=== PATIENT | female | born 1995 | race Caucasian/White ===

== ENCOUNTER 2016-10-22 15:59 | Inpatient (IN) | payer OTHER ==
[2016-10-26] MEDS ORDERED: METHYLERGONOVINE 0.2 MG/ML 1 ML AMP IM PRN (06:09)
[2016-10-26] MEDS ORDERED: OXYTOCIN 10 UNIT/ML 1 ML VIAL IM PRN (06:09)
[2016-10-26] MEDS ORDERED: LIDOCAINE 1% (PF) 10 MG/ML (30 ML SDV) SQ PRN (06:09)
[2016-10-26] MEDS ORDERED: TERBUTALINE 1 MG/ML VIAL SQ PRN (06:09)
[2016-10-26] MEDS ORDERED: CARBOPROST TROMETHAMINE 250 MCG/ML 1 ML AMP IM PRN (06:09)
[2016-10-26] MEDS ORDERED: OXYTOCIN 20 UNITS/1000 ML NS 1,000 ML IV SCH (06:15)
[2016-10-26] MEDS: LACTATED RINGERS 1,000 ML IV SCH ×3 (06:20→12:11)
[2016-10-26 06:50] LABS: Basophils % (A) 0 %; CH 32.5; CHCM 36.6; Eosinophils # (A) 0.1 k/uL (0-0.7); Eosinophils % (A) 1 %; HCT 33.1 % (34.0-46.0); HDW 3.05; Luc # (Auto) 0.15; Luc % (Auto) 1; Lymphocytes # (A) 1.5 k/uL (1.0-4.8); Lymphocytes % (A) 13 %; MCH 32.4 pg (25.0-35.0); MCHC 36.3 g/dL (31.0-37.0); MCV 89.3 fL (80.0-100.0); Mean Platelet Volume 8.1; Monocytes # (A) 0.6 k/uL (0-1.0); Monocytes % (A) 5 %; Neutrophils # (A) 9.3 k/uL (1.3-7.7); Neutrophils % (A) 79 %; RDW 13.3 % (11.5-15.5); WBC 11.8 k/uL (3.8-10.6); WBC (Perox) 11.69
--- NOTE | 2016-10-26 07:28 | P.HPOB ---
History of Present Illness Chief Complaint: t This is a 21-year-old white female 1 para 0 EDC 10/22/2016 at 40-4/7 weeks' gestation. Patient presents for induction with favorable cervix, postdates. has been unremarkable, blood type is O+, rubella status nonimmune, group B strep cultures negative. Please see below. Fetus has been active throughout the . She admits to irregular mild uterine contractions this morning. Past medical history is significant for anxiety, attention deficit disorder, and polycystic ovarian syndrome. Past surgical history abdominoplasty 2015, breast reduction 2015, tubes in the ears as a child. Current medications vitamins daily. ALLERGIES none known. Family history significant for breast and colon cancer, hypertension and kidney failure, heart disease and emphysema. Social history patient is single, boyfriend is involved, she denies alcohol drug use or tobacco use. history is significant for blood type O positive, rubella status nonimmune. Pap smear, urine culture, gonorrhea and chlamydia cultures, VDRL, HIV testing, hepatitis B surface antigen all negative. One-hour Glucola 123. On exam this is a pleasant young female, she is 5 foot 3 inches, 198 pounds, admission blood pressure 125/73. Vital signs are stable and she is afebrile. The general physical exam is within normal limits. The extremities reveal no edema. heart rate is consistent with reactive NST with a baseline of 140. Artificial amniorrhexis reveals light meconium-stained fluid. Cervix is 3 cm dilated, 60-70% effaced, -2 station, vertex presentation. Impression: 40-4/7 weeks intrauterine , here for elective induction of labor, meconium-stained fluid, rubella nonimmune. Plan: Close maternal and surveillance. Oxytocin per hospital protocol. Anticipate normal spontaneous vaginal delivery. Medications and Allergies Allergies Allergy/AdvReac Type Severity Reaction Status Date / Time No Known Allergies Allergy Verified 10/26/16 06:09 Exam - Vital Signs Vital signs: Intake and Output 10/25/16 10/26/16 10/26/16 22:59 06:59 14:59 Other: Weight 89.811 kg Results Result Diagrams: 10/26/16 06:20 Abnormal Lab Results - Last 24 Hours (Table) 10/26/16 Range/Units 06:20 WBC 11.8 H (3.8-10.6) k/uL RBC 3.70 L (3.80-5.40) m/uL Hct 33.1 L (34.0-46.0) % Neutrophils # 9.3 H (1.3-7.7) k/uL
[2016-10-26 07:42] VITALS: BMI 35.0
[2016-10-26] MEDS ORDERED: fentaNYL (PF) 50 MCG/ML 5 ML AMP ONE (10:01)
[2016-10-26] MEDS ORDERED: SODIUM CHLORIDE 0.9% 100 ML BAG ONE (10:01)
[2016-10-26] MEDS ORDERED: BUPIVACAINE (PF) 0.25% 30 ML VIAL ONE (10:01)
[2016-10-26] MEDS ORDERED: BUPIVACAINE (PF) 0.25% 25 ML, fentaNYL (PF) 200 MCG in SODIUM CHLORIDE 0.9% 71 ML EPIDURAL ONE (11:28)
[2016-10-26] MEDS ORDERED: MEASLES-MUMPS-RUBELLA VACC/PF 12,500 UNIT/0.5 ML VIAL SQ ONE (16:07)
[2016-10-26] MEDS ORDERED: SIMETHICONE 80 MG CHEWABLE PO PRN (16:07)
[2016-10-26] MEDS ORDERED: diphenhydrAMINE 50 MG/ML 1 ML VIAL IVP PRN ×2 (16:07)
[2016-10-26] MEDS ORDERED: Acetaminophen-Codeine 300-30mg TAB PO PRN (16:07)
[2016-10-26] MEDS ORDERED: ZOLPIDEM 5 MG TAB PO PRN (16:07)
[2016-10-26] MEDS ORDERED: ACETAMINOPHEN TAB 325 MG TAB PO PRN (16:07)
[2016-10-26] MEDS ORDERED: diphenhydrAMINE 50 MG CAP PO PRN (16:07)
[2016-10-26] MEDS ORDERED: BENZOCAINE/MENTHOL SPRAY 1 GM/SPRAY AEROSOL TOPICAL PRN (16:07)
[2016-10-26] MEDS ORDERED: WITCH HAZEL 1 EACH MED..PAD TOPICAL PRN (16:07)
[2016-10-26] MEDS ORDERED: LANOLIN CREAM 5 GM TUBE TOPICAL PRN (16:07)
[2016-10-26] MEDS ORDERED: diphenhydrAMINE 25 MG CAP PO PRN (16:07)
[2016-10-26] MEDS ORDERED: HYDROCORTISONE 2.5% RECTAL CREAM 30 GM TUBE RECTAL PRN (16:07)
--- NOTE | 2016-10-26 16:07 | P.PROBDLV ---
Vaginal Delivery Note - . Vaginal Delivery Note: This is a 21-year-old white female 1 para 0 EDC 10/22/2016 at 40-4/7 weeks' gestation. Patient presented for induction with favorable cervix for postdates . has been unremarkable, rubella status nonimmune , blood type O+, group B strep cultures negative. Please see my dictated history and physical for details. Artificial amniorrhexis revealed light meconium-stained fluid. Oxytocin was started and titrated per hospital protocol. Epidural was placed per her request. Patient became completely dilated at 1541 hours and began the second stage of labor at that time. There were several episodes of decelerations noted in the first stage of labor, all corrected with position change. The perineal body was prepped and draped in usual sterile fashion. With excellent maternal expulsive efforts the infant's head delivered occiput anterior. He restituted accordingly. There was a tight nuchal cord that was easily reduced. The left or anterior shoulder was delivered from underneath the pubic symphysis at which time the oropharynx, nasopharynx, and external nares were bulb suctioned on the perineal body. Patient was officially delivered a liveborn male infant at 1550 hrs. Umbilical cord was doubly clamped and ligated, he was handed to waiting nurses for evaluation where scores of 37 and 9 at one and 5 and 10 minutes respectively were given. A section of cord was held aside but not deemed necessary to sent to lab. The placenta delivered spontaneously, it was inspected and noted to be intact with trivascular cord at 1555 hrs. At this time the uterus was massaged and oxytocin bolus was given. Inspection of the cervix, vagina, perineum, periurethral, and perirectal areas revealed a small first-degree perineal laceration at 5:00. This was repaired in the usual fashion using a single [id number] of 3-0 Vicryl. All sponge needle and enhancement counts are correct at the end of the procedure. Estimated blood loss 300 mL's. Patient and her family are allowed to begin the bonding experience in the LDR. They are requesting circumcision further son.
[2016-10-26] MEDS ORDERED: DIPH,PERTUS(ACELL)TETVAC-LF 0.5 ML VIAL IM ONE (16:08)
[2016-10-26] MEDS: SENNOSIDES-DOCUSATE SODIUM 1 EACH TAB PO SCH (20:42)
[2016-10-26] MEDS: IBUPROFEN 600 MG TAB PO PRN (22:50)
--- NOTE | 2016-10-27 07:43 | P.PN ---
Subjective Principal diagnosis: day #1 Slept well. Feeling great. Moderate to minimal lochia rubra. No complaints. Objective - Vital Signs Vital signs: Vital Signs Temp 98.1 F 10/27/16 00:00 Pulse 102 H 10/27/16 00:00 Resp 15 10/27/16 00:00 BP 146/79 10/27/16 00:00 Pulse Ox 97 10/26/16 17:58 Intake & Output 10/26/16 10/27/16 10/27/16 18:59 06:59 18:59 Intake Total 1000.0 Balance 1000.0 Weight 89.811 kg Intake: Intake, IV Titration 1000.0 Amount Oxytocin 20 Units/1000 ml 1000.0 Ns 1,000 ml @ 1 MILLIUNIT/MIN 3 mls/hr IV .Q24H TEZ Rx#:[id number] Other: # Voids 1 - Constitutional General appearance: Present: average body habitus, cooperative - EENT Eyes: Present: PERRLA ENT: Present: hearing grossly normal - Neck Neck: Present: normal ROM Thyroid: bilateral: normal size - Respiratory Respiratory: bilateral: CTA - Cardiovascular Rhythm: regular - Gastrointestinal Gastrointestinal Comment(s): Fundus firm, midline, symmetric, 18 week size. Nontender General gastrointestinal: Present: normal bowel sounds - Integumentary Integumentary: Present: normal - Neurologic Neurologic: Present: CNII-XII intact - Musculoskeletal Musculoskeletal: Present: gait normal - Psychiatric Psychiatric: Present: A&O x's 3, appropriate affect, intact judgment & insight - Labs CBC & Chem 7: 10/26/16 06:20 Assessment and Plan Plan: Continue care. Patient is a candidate for discharge home, however infant is in the nursery for extended antibiotics. Likely circumcision and discharge home tomorrow. Time with Patient: Less than 30
[2016-10-27] MEDS: IBUPROFEN 600 MG TAB PO PRN ×3 (08:05→23:28)
[2016-10-27] MEDS: SENNOSIDES-DOCUSATE SODIUM 1 EACH TAB PO SCH ×2 (10:46→22:44)
--- NOTE | 2016-10-28 07:23 | P.DS ---
Providers Date of admission: 10/26/16 06:03 Expected date of discharge: 10/28/16 Attending physician: Valeria Dillard Primary care physician: Stated None Hospital Course: This is a 21-year-old white female 1 para 0 EDC 10/22/2016 at 40-4/7 weeks' gestation. Patient presented for induction for postdates , group B strep cultures negative, rubella status nonimmune. Please see my dictated history and physical for details. Artificial amniorrhexis revealed thin meconium-stained fluid. Oxytocin was started and titrated per hospital protocol. Patient went on to deliver a liveborn male infant with scores of 37 and 9 at one and 5 and 10 minutes respectively. There was a tight nuchal cord 1. Infant weighed 3895 g or 8 lbs. 9 oz. There was an estimated blood loss recorded of 300 mL, and a small first-degree perineal laceration easily repaired. Please see my dictated delivery note for details. This morning the patient is doing well. She is voiding, ambulating and passing flatus without difficulty. Vital signs are stable and she is afebrile. Fundus is firm and in the midline, symmetric and 18 week size extremities are negative for edema. Breasts are not engorged. Cass is in the nursery for antibiotic administration under pediatricians care. Circumcision has not yet been performed, but will be prior to discharge of the . Patient is being discharged home in very good condition. She will follow-up with me in the office in 6 weeks. I have reminded her no intercourse, tampons or douching. She will use [id number] ibuprofen products, 200 mg pills, 3 every 6 hours as needed. I've asked her to call me with any fevers shakes or chills, foul smelling or copious lochia, with any issues breast-feeding, with any pain not alleviated by [id number] products, or indeed with any concerns. We have briefly reviewed contraceptive options and we will discuss this further in the office. Patient Condition at Discharge: Good Plan - Discharge Summary Follow up Appointment(s)/Referral(s): Valeria Dillard MD [STAFF PHYSICIAN] - 6 Weeks Discharge Disposition: HOME SELF-CARE
[2016-10-28] MEDS: IBUPROFEN 600 MG TAB PO PRN (08:02)
[2016-10-28] MEDS: SENNOSIDES-DOCUSATE SODIUM 1 EACH TAB PO SCH (08:02)
[2016-10-28 08:05] VITALS: BP 128/84; PULSE 80; RESP 16; TEMP 97.9
== END 2016-10-28 12:54 | disposition home or self-care (01) | DRG 775 ==
LOC: 4FBP 10-26 06:03
PROVIDERS: ADMIT Obstetrics & Gynecology; ATTEND Obstetrics & Gynecology
PROC: 0HQ9XZZ Repair Perineum Skin, External Approach (ICD-10-PCS; principal; 2016-10-26)
PROC: 3E0R3CZ (ICD-10-PCS; principal; 2016-10-26)
PROC: 00HU33Z Insertion of Infusion Device into Spinal Canal, Percutaneous Approach (ICD-10-PCS; principal; 2016-10-26)
PROC: 10907ZC Drainage of Amniotic Fluid, Therapeutic from Products of Conception, Via Natural or Artificial Opening (ICD-10-PCS; principal; 2016-10-26)
PROC: 3E033VJ Introduction of Other Hormone into Peripheral Vein, Percutaneous Approach (ICD-10-PCS; principal; 2016-10-26)
PROC: 10E0XZZ Delivery of Products of Conception, External Approach (ICD-10-PCS; principal; 2016-10-26)
DX: O48.0 Post-term pregnancy (principal); O77.0 Labor and delivery complicated by meconium in amniotic fluid; Z37.0 Single live birth; O69.1XX0 Labor and delivery complicated by cord around neck, with compression, not applicable or unspecified; O70.0 First degree perineal laceration during delivery; Z3A.40 40 weeks gestation of pregnancy; O76 Abnormality in fetal heart rate and rhythm complicating labor and delivery
CPT/HCPCS: 85025; 88307; 88312; 90707; 90715

== ENCOUNTER 2016-11-01 17:50 | Inpatient (IN) | payer OTHER ==
[2016-11-01] MEDS ORDERED: SODIUM CHLORIDE 0.9% 1,000 ML IV STA (20:05)
--- NOTE | 2016-11-01 20:38 | ED ---
General Adult HPI - General Chief complaint: Headache Stated complaint: dr paula/ZAYNAB Time Seen by Provider: 11/01/16 20:00 Source: patient, RN notes reviewed Mode of arrival: wheelchair Limitations: no limitations - History of Present Illness Initial comments: Patient is a 21-year-old female who is status post vaginal delivery times only, who presents emergency room today with a chief complaint of having a headache earlier today with an elevated blood pressure. She states that she did take Excedrin prior to arrival. States her headache is improved. Currently rates a /. States is no history of hypertension. She denies any other complaints or symptoms at this time. Patient denies any recent fever, chills, shortness of breath, chest pain, back pain, abdominal pain, nausea or vomiting, numbness or tingling, dysuria or hematuria, constipation or diarrhea, headaches or visual changes, or any other complaints. - Related Data Home Medications Medication Instructions Recorded Confirmed Aspirin/Acetaminophen/Caffeine 2 tab PO DAILY PRN 11/01/16 11/01/16 [Excedrin Migraine Caplet] Ibuprofen [Motrin] 600 mg PO Q6HR PRN 11/01/16 11/01/16 Pnv,Calcium 72/Iron/Folic Acid 1 tab PO HS 11/01/16 11/01/16 [ Plus Tablet] Allergies Allergy/AdvReac Type Severity Reaction Status Date / Time No Known Allergies Allergy Verified 11/01/16 19:45 Review of Systems ROS Statement: Those systems with pertinent positive or pertinent negative responses have been documented in the HPI. ROS Other: All systems not noted in ROS Statement are negative. Past Medical History Past Medical History: No Reported History History of Any Multi-Drug Resistant Organisms: None Reported Additional Past Surgical History / Comment(s): breast reduction, tummy tuck, tubes in ears Past Anesthesia/Blood Transfusion Reactions: Postoperative Nausea & Vomiting ( PONV) Past Psychological History: Anxiety Smoking Status: Never smoker Past Alcohol Use History: None Reported Past Drug Use History: None Reported - Past Family History Father Additional Family Medical History / Comment(s): bicuspid aortic aneurism. General Exam - General Exam Comments Initial Comments: General: The patient is awake and alert, in no distress, and does not appear acutely ill. Eye: Pupils are equal, round and reactive to light, extra-ocular movements are intact. No nystagmus. There is normal conjunctiva bilaterally. No signs of icterus. Ears, nose, mouth and throat: There are moist mucous membranes and no oral lesions. Neck: The neck is supple, there is no tenderness or JVD. Cardiovascular: There is a regular rate and rhythm. No murmur, rub or gallop is appreciated. Respiratory: Lungs are clear to auscultation, respirations are non-labored, breath sounds are equal. No wheezes, stridor, rales, or rhonchi. Gastrointestinal: Soft, non-distended, non-tender abdomen without masses or organomegaly noted. There is no rebound or guarding present. No CVA tenderness. Bowel sounds are unremarkable. Musculoskeletal: Normal ROM, no tenderness. Strength 5/5. Sensation intact. Pulses equal bilaterally 2+. Neurological: A&O x 3. CN II-XII intact, There are no obvious motor or sensory deficits. Coordination appears grossly intact. Speech is normal. Skin: Skin is warm and dry and no rashes or lesions are noted. Psychiatric: Cooperative, appropriate mood & affect, normal judgment. Limitations: no limitations Course Vital Signs 11/01/16 11/01/16 11/01/16 17:58 20:00 20:51 Temperature 98.2 F Pulse Rate 67 82 63 Respiratory 16 20 20 Rate Blood Pressure 180/96 205/99 197/90 O2 Sat by Pulse 96 95 Oximetry 11/01/16 11/01/16 11/01/16 21:47 22:26 23:10 Temperature Pulse Rate 60 60 84 Respiratory 16 16 16 Rate Blood Pressure 192/94 168/90 171/99 O2 Sat by Pulse 96 98 97 Oximetry 11/01/16 23:34 Temperature Pulse Rate 78 Respiratory 16 Rate Blood Pressure 161/92 O2 Sat by Pulse 96 Oximetry Medical Decision Making - Medical Decision Making Patient's labs been reviewed. Patient's blood pressure remains elevated here the emergency room had 2 doses of hydralazine. Patient's labs been reviewed 2+ protein in urine. Evidence for urinary tract infection. Started on Rocephin here in emergency room. Case discussed with admitting physician Dr. Sam who will admit the patient. - Lab Data Result diagrams: 11/01/16 20:20 11/01/16 20:20 Lab Results 09/26/17 09/26/17 09/26/17 Range/Units 20:20 20:20 21:05 WBC 9.7 (3.8-10.6) k/uL RBC 3.48 L (3.80-5.40) m/uL Hgb 11.3 L (11.4-16.0) gm/dL Hct 32.4 L (34.0-46.0) % MCV 93.1 (80.0-100.0) fL MCH 32.6 (25.0-35.0) pg MCHC 35.1 (31.0-37.0) g/dL RDW 12.7 (11.5-15.5) % Plt Count 286 (150-450) k/uL Neutrophils % 77 % Lymphocytes % 14 % Monocytes % 5 % Eosinophils % 2 % Basophils % 1 % Neutrophils # 7.5 (1.3-7.7) k/uL Lymphocytes # 1.3 (1.0-4.8) k/uL Monocytes # 0.5 (0-1.0) k/uL Eosinophils # 0.2 (0-0.7) k/uL Basophils # 0.1 (0-0.2) k/uL Sodium 141 (137-145) mmol/L Potassium 3.6 (3.5-5.1) mmol/L Chloride 107 (98-107) mmol/L Carbon Dioxide 24 (22-30) mmol/L Anion Gap 10 mmol/L BUN 8 (7-17) mg/dL Creatinine 0.68 (0.52-1.04) mg/dL Est GFR (MDRD) Af Amer >60 (>60 ml/min/1.73 sqM) Est GFR (MDRD) Non-Af >60 (>60 ml/min/1.73 sqM) Glucose 92 (74-99) mg/dL Calcium 9.4 (8.4-10.2) mg/dL Total Bilirubin 0.3 (0.2-1.3) mg/dL AST 13 L (14-36) U/L ALT 29 (9-52) U/L Alkaline Phosphatase 123 (38-126) U/L Total Protein 6.3 (6.3-8.2) g/dL Albumin 3.6 (3.5-5.0) g/dL Urine Color Yellow Urine Appearance Cloudy H (Clear) Urine pH 7.5 (5.0-8.0) Ur Specific [place]man 1.006 (1.001-1.035) Urine Protein 2+ H (Negative) Urine Glucose (UA) Negative (Negative) Urine Ketones Negative (Negative) Urine Blood Large H (Negative) Urine Nitrite Negative (Negative) Urine Bilirubin Negative (Negative) Urine Urobilinogen <2.0 (<2.0) mg/dL Ur Leukocyte Esterase Large H (Negative) Urine RBC 25 H (0-5) /hpf Urine WBC >182 H (0-5) /hpf Urine WBC Clumps Many H (None) /hpf Ur Squamous Epith Cells 3 (0-4) /hpf Disposition Clinical Impression: Preeclampsia Disposition: ADMITTED IP TO THIS HOSP Condition: Stable Referrals: Oleksandr Roth MD [Primary Care Provider] - 1-2 days Time of Disposition: 23:39
[2016-11-01 20:40] LABS: Basophils # (A) 0.1 k/uL (0-0.2); Basophils % (A) 1 %; CH 32.5; CHCM 35.1; Eosinophils # (A) 0.2 k/uL (0-0.7); Eosinophils % (A) 2 %; HCT 32.4 % (34.0-46.0); HGB 11.3 gm/dL (11.4-16.0); Luc # (Auto) 0.13; Luc % (Auto) 1; Lymphocytes # (A) 1.3 k/uL (1.0-4.8); Lymphocytes % (A) 14 %; MCH 32.6 pg (25.0-35.0); MCHC 35.1 g/dL (31.0-37.0); MCV 93.1 fL (80.0-100.0); Mean Platelet Volume 7.3; Monocytes # (A) 0.5 k/uL (0-1.0); Monocytes % (A) 5 %; Neutrophils # (A) 7.5 k/uL (1.3-7.7); Neutrophils % (A) 77 %; RBC 3.48 m/uL (3.80-5.40); RDW 12.7 % (11.5-15.5); WBC 9.7 k/uL (3.8-10.6); WBC (Perox) 9.78
[2016-11-01 21:02] LABS: ALT 29 U/L (9-52); AST 13 U/L (14-36); Alkaline Phosphatase 123 U/L (38-126); Anion Gap 10 mmol/L; Blood Urea Nitrogen 8 mg/dL (7-17); Calcium 9.4 mg/dL (8.4-10.2); Carbon Dioxide 24 mmol/L (22-30); Chloride 107 mmol/L (98-107); Glucose 92 mg/dL (74-99); Non-African American GFR(MDRD) >60 (>60 ml/min/1.73 sqM); Potassium 3.6 mmol/L (3.5-5.1); Sodium 141 mmol/L (137-145); Total Bilirubin 0.3 mg/dL (0.2-1.3); Total Protein 6.3 g/dL (6.3-8.2)
[2016-11-01 21:29] LABS: Appearance,Urine Cloudy (Clear); Bilirubin,Urine Negative (Negative); Glucose,Urine (UA) Negative (Negative); Ketones,Urine Negative (Negative); Leukocyte Esterase,Urine Large (Negative); Nitrite,Urine Negative (Negative); PH, Urine 7.5 (5.0-8.0); Particle Count 12812; Protein,Urine 2+ (Negative); RBC,Urine 25 /hpf (0-5); Specific Gravity,Urine 1.006 (1.001-1.035); Squamous Epithelial Cell,Urine 3 /hpf (0-4); UA Billing (MACRO vs. MICRO) MICRO; Urobilinogen,Urine <2.0 mg/dL (<2.0); WBC,Urine >182 /hpf (0-5)
[2016-11-01] MEDS ORDERED: hydrALAZINE HCL 20 MG/ML 1 ML VIAL IVP STA ×2 (21:51→22:35)
[2016-11-02] MEDS ORDERED: LABETALOL 5 MG/ML VIAL MDV IVP PRN ×2 (00:17)
[2016-11-02] MEDS ORDERED: hydrALAZINE HCL 20 MG/ML 1 ML VIAL IVP PRN ×2 (00:17)
[2016-11-02] MEDS ORDERED: MAGNESIUM SULFATE MG 6,000 MG in SODIUM CHLORIDE 0.9% 50 ML IVPB ONE (00:20)
[2016-11-02] MEDS ORDERED: CALCIUM GLUCONATE 100 MG/ML 10 ML VIAL IV PRN (01:00)
[2016-11-02] MEDS: LACTATED RINGERS 1,000 ML IV SCH (01:15)
[2016-11-02] MEDS: MAGNESIUM SULFATE-WATER PMX 20 GM in WATER FOR INJECTION 1 500ML.BAG IV SCH ×4 (02:03→22:34)
[2016-11-02 03:32] VITALS: BMI 33.3
[2016-11-02] MEDS ORDERED: ACETAMINOPHEN IV (For NPO) 1,000 MG in EMPTY BAG 1 BAG IVPB ONE (07:58)
--- NOTE | 2016-11-02 08:23 | P.HPOB ---
History of Present Illness H&P Date: 11/02/16 Chief Complaint: Severe headache, blood pressure 200/110 at [facility] This is a 21-year-old white female 1 para 1 status post normal spontaneous vaginal delivery at 40-4/7 weeks' here, 6 days ago. Patient presented to the emergency room with a severe headache, blood pressure checked at an outside drugstore was 200/110. Patient was found to be hypertensive, blood pressures 190-200 over 90s to 110s. There was 2+ proteinuria noted. Liver enzymes normal. Diagnosis of severe preeclampsia was made and patient was admitted to labor and delivery. Past medical history is significant for anxiety and attention deficit disorder, as well as polycystic ovaries. Past surgical history abdominoplasty 2005, bilateral breast reduction 2005, tympanic tubes in the ears as a child. Social history patient is single, she has good family support, she has never been a smoker, she denies alcohol or drug use. Family history significant for breast and ovarian cancer, hypertension, heart disease, kidney failure. Obstetric history: Normal spontaneous vaginal delivery at 40-4/7 weeks of liveborn male , 3895 kg. There was no history of -induced hypertension or elevated blood pressures in the period. On exam she is 5'3", BMI 33, BP now 130's/80's. HEENT exam WNL. Chest clear A and P. Cardiac exam RRR, no murmurs. Breast engorged consistant with post status. Fundus firm, 16-18 wk size, nontender and midline, symmetric. Extremities with no edema, 3+ relfexes, no clonus. Minimal lochia rubra, no perineal edema. Lab include 2+ proteinuria, all else WNL. Impression: severe preeclampsia presenting at 6days post . BP greatly improved on MgSO4. Plan: Mg SO4 6g loading dose given, 2g per hour and continue for 24 hours,m then taper. May shower with assistance. Advance to regular diet. Continue close BP surveillance and consdier antihypertensive agent pending progress. Review of Systems See distation under HPI Past Medical History Past Medical History: No Reported History Additional Past Medical History / Comment(s): anxiety, ADD, PCO History of Any Multi-Drug Resistant Organisms: None Reported Additional Past Surgical History / Comment(s): breast reduction, tummy tuck, tubes in ears Past Anesthesia/Blood Transfusion Reactions: Postoperative Nausea & Vomiting ( PONV) Past Psychological History: Anxiety Smoking Status: Never smoker Past Alcohol Use History: None Reported Past Drug Use History: None Reported - Past Family History Father Additional Family Medical History / Comment(s): bicuspid aortic aneurism. Medications and Allergies Home Medications and Allergies Comment(s): vitamins Home Medications Medication Instructions Recorded Confirmed Type Aspirin/Acetaminophen/Caffeine 2 tab PO DAILY PRN 11/01/16 11/01/16 History [Excedrin Migraine Caplet] Ibuprofen [Motrin] 600 mg PO Q6HR PRN 11/01/16 11/01/16 History Pnv,Calcium 72/Iron/Folic Acid 1 tab PO HS 11/01/16 11/01/16 History [ Plus Tablet] Allergies Allergy/AdvReac Type Severity Reaction Status Date / Time No Known Allergies Allergy Verified 11/01/16 19:45 Exam - Vital Signs Vital signs: Vital Signs Temp Pulse Pulse Resp BP BP Pulse Ox 11/02/16 01:10 98.2 F 72 16 166/88 96 11/02/16 00:24 7 L 16 162/77 97 11/01/16 23:34 78 16 161/92 96 11/01/16 23:10 84 16 171/99 97 11/01/16 22:26 60 16 168/90 98 11/01/16 21:47 60 16 192/94 96 11/01/16 20:51 63 20 197/90 95 11/01/16 20:00 82 20 205/99 11/01/16 17:58 98.2 F 67 16 180/96 96 Intake and Output 11/01/16 11/02/16 11/02/16 22:59 06:59 14:59 Intake Total 50 Output Total 1550 Balance -1500 Intake: IV 50 Magnesium Sulfate mg 6, 50 000 mg In Sodium Chloride 0.9% 50 ml @ 150 mls/hr IVPB ONCE ONE Rx#: [id number] Output: Urine 1550 Other: # Voids 0 Weight 85.275 kg 85.275 kg see my dictation under HPI please Results Result Diagrams: 11/01/16 20:20 11/01/16 20:20 Abnormal Lab Results - Last 24 Hours (Table) 11/01/16 11/01/16 11/01/16 Range/Units 20:20 20:20 21:05 RBC 3.48 L (3.80-5.40) m/uL Hgb 11.3 L (11.4-16.0) gm/dL Hct 32.4 L (34.0-46.0) % AST 13 L (14-36) U/L Urine Appearance Cloudy H (Clear) Urine Protein 2+ H (Negative) Urine Blood Large H (Negative) Ur Leukocyte Esterase Large H (Negative) Urine RBC 25 H (0-5) /hpf Urine WBC >182 H (0-5) /hpf Urine WBC Clumps Many H (None) /hpf Assessment and Plan Plan: Continue Mg SO$ at 2g per hour. May advance diet and activity. Time with Patient: Greater than 30
[2016-11-02] MEDS: LABETALOL 100 MG TAB PO SCH ×2 (14:14→19:49)
[2016-11-02] MEDS ORDERED: ACETAMINOPHEN TAB 500 MG TAB PO PRN (18:35)
[2016-11-02] MEDS ORDERED: IBUPROFEN 600 MG TAB PO PRN (23:34)
[2016-11-03] MEDS: LACTATED RINGERS 1,000 ML IV SCH (01:42)
--- NOTE | 2016-11-03 07:36 | P.DS ---
Providers Date of admission: 11/01/16 23:39 Expected date of discharge: 11/03/16 Attending physician: Shira Sam Primary care physician: Oleksandr Gonzalez [facility] Course: This 21-year-old white female 1 para 0 presented to the emergency room 6 days status post vaginal delivery. Her complaint was that of severe headache. She took her blood pressure outside the hospital, it was noted to be 200/110. She presented to the ER at which point severe preeclampsia was diagnosed. Urine revealed 2+ protein. She was admitted and magnesium sulfate was started, 6 g loading dose, then 2 g per hour for 24 hours. Magnesium was weaned, patient has been started on Procardia XL 30 mg by mouth daily. This morning she is feeling greatly improved. The headache is completely resolved. Her edema has lessened, she is urinating frequently. is doing well. She is not breast-feeding. Her blood pressures have stabilized in the 130s over 70s range. I believe she is in very good condition for discharge home, but will continue taking the Procardia once daily and a prescription has been written. I have reminded her to call me with any fevers shakes or chills, with any headache visual changes or right upper quadrant pain, with any lightheadedness or dizziness or any symptomatology. She has a blood pressure cuff at home and will take her blood pressure once daily and write it down. She will call me if it gets greater than 140/90. I will see her in the office in 1 week. Patient Condition at Discharge: Good Plan - Discharge Summary New Discharge Prescriptions: No Action Pnv,Calcium 72/Iron/Folic Acid [ Plus Tablet] 1 tab PO HS Ibuprofen [Motrin] 600 mg PO Q6HR PRN PRN Reason: Pain Aspirin/Acetaminophen/Caffeine [Excedrin Migraine Caplet] 2 tab PO DAILY PRN PRN Reason: Migraine Headache Discharge Medication List Aspirin/Acetaminophen/Caffeine [Excedrin Migraine Caplet] 2 tab PO DAILY PRN [History] Ibuprofen [Motrin] 600 mg PO Q6HR PRN 11/01/16 [History] Pnv,Calcium 72/Iron/Folic Acid [ Plus Tablet] 1 tab PO HS 11/01/16 [ History] Follow up Appointment(s)/Referral(s): Oleksandr Roth MD [Primary Care Provider] - 1-2 days
[2016-11-03] MEDS ORDERED: NIFEdipine XL 30 MG TAB.ER.24 PO SCH (09:00)
[2016-11-03 11:23] VITALS: RESP 20
[2016-11-03] MEDS ORDERED: NIFEdipine 10 MG CAP PO ONE (15:02)
[2016-11-03] MEDS ORDERED: NIFEdipine XL 30 MG TAB.ER.24 PO STA (15:51)
[2016-11-03 19:07] VITALS: BP 142/83; PULSE 73; TEMP 98.3
== END 2016-11-03 21:10 | disposition home or self-care (01) | DRG 776 ==
LOC: EC 17:50 → 4FBP 23:39
PROVIDERS: ADMIT Obstetrics & Gynecology; ATTEND Obstetrics & Gynecology
DX: O14.15 Severe pre-eclampsia, complicating the puerperium (principal); O86.20 Urinary tract infection following delivery, unspecified; E28.2 Polycystic ovarian syndrome; F98.8 Other specified behavioral and emotional disorders with onset usually occurring in childhood and adolescence; Z79.899 Other long term (current) drug therapy; Z86.59 Personal history of other mental and behavioral disorders; Z82.49 Family history of ischemic heart disease and other diseases of the circulatory system
CPT/HCPCS: 36415; 80053; 81001; 85025; 96361; 96365; 96366; 96375; 96376; 99284